=== PATIENT | male | born 2000 | race American Indian/Alaskan Native ===

== ENCOUNTER 2020-09-21 03:13 | Emergency (ER) | payer SELFPAY ==
[2020-09-21 04:21] LABS: Bacteria,Urine 1+ /HPF (Negative); Bilirubin,Urine NEG (Negative); Blood,Urine LG (Negative); Color,Urine Amber (Yellow); Mucus,Urine FEW /HPF; Urobilinogen,Urine < 2.0 mg/dL (<2.0)
[2020-09-21 04:23] LABS: RBC,Urine > 182.0 /HPF (0.0-6.0)
--- NOTE | 2020-09-21 06:29 | Emergency Department Report ---
ED Male HPI - General Chief complaint: Urogenital-Male Stated complaint: HEMATURIA Time Seen by Provider: 09/21/20 06:16 Source: patient Mode of arrival: Ambulatory Limitations: No Limitations - History of Present Illness Initial comments: Patient is 19 years old male with no significant past medical history. Patient presented to the ER complaining of painless hematuria started last night. Patient stated that he is not sure if he had any injury or not. Patient denied any fever or chills. Patient is sexually active. Patient denied any testicular o r penis pain or swelling. MD Complaint: genital injury, other (hematuria) -: Last night Location: abdomen Radiation: none denies other symptoms - Related Data Sexually active: Yes Allergies Allergy/AdvReac Type Severity Reaction Status Date / Time No Known Allergies Allergy Unverified 09/21/20 03:53 ED Review of Systems ROS: Stated complaint: HEMATURIA Other details as noted in HPI Comment: All other systems reviewed and negative Constitutional: denies: chills, fever Respiratory: denies: cough, shortness of breath, SOB with exertion Cardiovascular: denies: chest pain, palpitations Gastrointestinal: denies: nausea, vomiting, diarrhea, constipation, hematemesis, melena Genitourinary: hematuria Neurological: denies: headache, weakness, numbness, paresthesias, confusion, abnormal gait ED Past Medical Hx - Past Medical History Previous Medical History?: No - Surgical History Past Surgical History?: No - Social History Smoking Status: Never Smoker Substance Use Type: None ED Physical Exam - General Limitations: No Limitations General appearance: alert, in no apparent distress - Head Head exam: Present: atraumatic, normocephalic, normal inspection - Eye Eye exam: Present: normal appearance, PERRL - ENT ENT exam: Present: normal exam, normal orophraynx, mucous membranes moist - Neck Neck exam: Present: normal inspection, full ROM. Absent: tenderness, meningismus - Respiratory Respiratory exam: Present: normal lung sounds bilaterally - Cardiovascular Cardiovascular Exam: Present: regular rate, normal rhythm, normal heart sounds - GI/Abdominal GI/Abdominal exam: Present: soft, normal bowel sounds. Absent: distended, tenderness, guarding, rebound, rigid, organomegaly, mass, bruit, pulsatile mass, hernia - Extremities Exam Extremities exam: Present: normal inspection, full ROM, normal capillary refill. Absent: tenderness, pedal edema, joint swelling, calf tenderness - Back Exam Back exam: Present: normal inspection, full ROM. Absent: CVA tenderness (R), CVA tenderness (L) - Neurological Exam Neurological exam: Present: alert, oriented X3, CN II-XII intact, normal gait, reflexes normal. Absent: motor sensory deficit - Psychiatric Psychiatric exam: Present: normal mood - Skin Skin exam: Present: warm, intact, normal color ED Course Vital Signs 09/21/20 09/21/20 09/21/20 03:46 06:10 08:00 Temperature 99.3 F Pulse Rate 116 H 100 H 96 H Respiratory 18 18 16 Rate Blood Pressure 152/81 Blood Pressure 146/86 125/74 [Left] O2 Sat by Pulse 98 99 100 Oximetry ED Medical Decision Making - Lab Data Result diagrams: 09/21/20 06:29 09/21/20 06:29 - Radiology Data Radiology results: report reviewed - Medical Decision Making Patient is 19 years old male with no significant past medical history. Patient presented to the ER complaining of painless hematuria started last night. Patient stated that he is not sure if he had any injury or not. Patient denied any fever or chills. Patient is sexually active. Patient denied any testicular or penis pain or swelling. Labs reviewed and is unremarkable except for yeast in the urine. CT abdomen and pelvis is unremarkable. Patient given prescription for Diflucan and advised to follow-up with his primary care physician in the next 2 to 3 days and to return to the ER if he develop any new symptoms. Critical care attestation.: If time is entered above; I have spent that time in minutes in the direct care of this critically ill patient, excluding procedure time. ED Disposition Clinical Impression: Acute abdominal pain, Hematuria due to acute cystitis Disposition: - TO HOME OR SELFCARE Is pt being admited?: No Condition: Stable Instructions: Genital Yeast Infection, Male Referrals: PRIMARY CARE, [Primary Care Provider] - 3-5 Days
[2020-09-21 07:02] LABS: Basophils % (Auto) 0.7 % (0.0-1.8); Eosinophils % (Auto) 0.4 % (0.0-4.3); Hematocrit 45.2 % (35.5-45.6); Hemoglobin 15.7 gm/dl (11.8-15.2); Lymphocytes # (Auto) 1.8 K/mm3 (1.2-5.4); Mean Corpuscular HGB Conc 35 % (32-34); Mean Corpuscular Volume 91 fl (84-94); Monocytes # (Auto) 0.4 K/mm3 (0.0-0.8); Monocytes % (Auto) 8.3 % (0.0-7.3); Platelet Count 290 K/mm3 (140-440); Red Blood Count 4.97 M/mm3 (3.65-5.03); Red Cell Distribution Width 14.1 % (13.2-15.2)
[2020-09-21 07:15] LABS: BUN/Creatinine Ratio 10; Blood Urea Nitrogen 10 mg/dL (9-20); Calcium 9.1 mg/dL (8.4-10.2); Hemolysis Index 15
[2020-09-21 08:01] VITALS: BP 125/74
--- NOTE | 2020-09-21 08:26 | Cat Scan Report ---
CT OF THE ABDOMEN AND PELVIS WITHOUT CONTRAST INDICATION / CLINICAL INFORMATION: Abdominal pain and hematuria. TECHNIQUE: All CT scans at this location are performed using CT dose reduction for ALARA by means of automated exposure control. COMPARISON: None available. FINDINGS: ABDOMEN: There is no evidence of renal calculus, hydronephrosis, perinephric soft tissue stranding or mass. There is a small accessory spleen inferiorly. The [place] spleen is normal. The liver, gallblad danay, bile ducts, pancreas, adrenal glands and bowel demonstrate no significant abnormality. No adenop athy is present. The lung bases are clear. PELVIS: The distal ureters, urinary bladder, prostate gland and seminal vesicles are normal. A normal appendix is present and there is no evidence of diverticulitis. No abnormal mass or fluid collection is seen. I do not identify a hernia. No acute osseous abnormality is present. IMPRESSION: 1. No acute abnormality is identified. 2. There is no evidence of urinary tract calculus or hydronephrosis. Signer Name: George Goldman MD Signed: 09/21/2020 8:22 AM Workstation Name: [id number]
== END 2020-09-21 09:51 | disposition home or self-care (01) ==
LOC: ED 03:13
DX: N30.01 Acute cystitis with hematuria (principal)
CPT/HCPCS: 36415; 74176; 80048; 81001; 85025; 87086; 99284